=== PATIENT | male | born 1975 | race Caucasian/White ===

== ENCOUNTER 2017-04-22 08:34 | Emergency (ER) | payer OTHER ==
[~2017-04-22] VITALS: Ht 175.3 cm; Wt 65.8 kg
[~2017-04-22 08:34] MED LIST: AMOXICILLIN 50500 MG PO; IBUPROFEN 600600 M1 PO; MOBIC; NAPROSYN500 MG PO; NORCO 5-325 TA1 EACH PO; NORFLEX100 MG PO; PENICILLIN VK500 M1 PO; PERIDEX 0.12%473 M1 SSP; XANAX 0.25 MG0.25 MG PO; XANAX 0.5 MG0.5 M1 PO; XANAX 1 MG TABLE1 MG PO
[2017-04-22 09:26] LABS: URINE BILIRUBIN NEGATIVE (Negative); URINE BLOOD NEGATIVE (Negative); URINE COLOR YELLOW; URINE GLUCOSE-RANDOM* NEGATIVE (Negative); URINE KETONES NEGATIVE (Negative); URINE LEUKOCYTES-REFLEX NEGATIVE (Negative); URINE PROTEIN (DIPSTICK) NEGATIVE (Negative); URINE SPECIFIC GRAVITY <= 1.005 (1.003-1.035); URINE UROBILINOGEN 0.2 E.U./dl (0.2-1.0)
[2017-04-22 09:33] LABS: ABSOLUTE NEUTROPHILS 4.9 thou/uL (1.4-8.2); BASOPHILS 0.4 % (0.0-2.0); EOSINOPHILS 1.4 % (0.0-3.0); HEMATOCRIT 46.2 % (42.0-52.0); HEMOGLOBIN 16.2 gm/dL (14.0-18.0); LYMPHOCYTES 23.5 % (24.0-44.0); MCH 33.7 pg (26.0-34.0); MCHC 35.1 g/dL (28.0-37.0); MCV 95.9 fL (80.0-100.0); MONOCYTES 11.8 % (1.0-8.0); POLYS 62.9 % (36.0-66.0); RBC 4.82 mil/uL (4.50-6.00); RDW 13.6 % (10.5-14.5); WBC 9.4 thou/uL (4.0-11.0)
[2017-04-22 09:35] LABS: AMP/METHAMP Negative (Negative); BARBITURATES Negative (Negative); BENZODIAZEPINES Negative (Negative); COCAINE Negative (Negative); METHADONE Negative (Negative); OPIATES Negative (Negative); PCP Negative (Negative); THC Negative (Negative)
[2017-04-22 09:35] LABS: MANUAL DIFF NO
[2017-04-22 09:42] LABS: PLATELET COUNT 173 thou/uL (150-400)
[2017-04-22 09:46] LABS: CALCIUM 9.1 mg/dL (8.5-10.1); CREATININE 1.1 mg/dL (0.7-1.3); POTASSIUM 3.9 mmol/L (3.5-5.1)
[2017-04-22 09:52] LABS: ALBUMIN 3.7 g/dL (3.4-5.0); TOTAL BILIRUBIN 0.4 mg/dL (<0.1-1.0); TOTAL PROTEIN 7.7 g/dL (6.4-8.2)
[2017-04-22 10:38] VITALS: BP 119/89
[2017-04-22] MEDS ORDERED: PHENERGAN 25 MG25 M1 PO (10:38)
[2017-04-22] MEDS ORDERED: PREDNISONE 10 M10 MG PO (10:38)
[2017-04-22] MEDS ORDERED: NORFLEX100 MG PO (10:38)
== END 2017-04-22 10:49 | disposition home or self-care (01) ==
LOC: ER 08:34
PROVIDERS: Physician Assistant
DX: R11.2 Nausea with vomiting, unspecified (principal); R19.7 Diarrhea, unspecified; M54.32 Sciatica, left side; F41.9 Anxiety disorder, unspecified; F17.210 Nicotine dependence, cigarettes, uncomplicated; F10.99 Alcohol use, unspecified with unspecified alcohol-induced disorder

== ENCOUNTER 2017-07-29 15:12 | Emergency (ER) | payer OTHER ==
[~2017-07-29] VITALS: Ht 175.3 cm; Wt 68.0 kg
[~2017-07-29 15:12] MED LIST changes: +PHENERGAN 25 MG25 M1 PO; +PREDNISONE 10 M10 MG PO
[2017-07-29 15:14] VITALS: BP 112/85
[2017-07-29] MEDS ORDERED: IBUPROFEN 600600 M1 PO (15:40)
[2017-07-29] MEDS ORDERED: FLEXERIL PO (15:40)
== END 2017-07-29 16:08 | disposition home or self-care (01) ==
LOC: ER 15:12
DX: M54.5 Low back pain (principal); F10.120 Alcohol abuse with intoxication, uncomplicated; F41.9 Anxiety disorder, unspecified; F17.210 Nicotine dependence, cigarettes, uncomplicated

== ENCOUNTER 2017-08-14 15:59 | Emergency (ER) | payer OTHER ==
[~2017-08-14] VITALS: Ht 175.3 cm; Wt 65.8 kg
[~2017-08-14 15:59] MED LIST changes: +FLEXERIL PO
[2017-08-14 16:58] LABS: BASOPHILS 1.1 % (0.0-2.0); EOSINOPHILS 1.8 % (0.0-3.0); HEMOGLOBIN 16.9 gm/dL (14.0-18.0); LYMPHOCYTES 33.3 % (24.0-44.0); MCH 33.5 pg (26.0-34.0); MCHC 33.8 g/dL (28.0-37.0); PLATELET COUNT 224 thou/uL (150-400); POLYS 54.8 % (36.0-66.0); RBC 5.05 mil/uL (4.50-6.00); RDW 14.7 % (10.5-14.5); WBC 9.1 thou/uL (4.0-11.0)
[2017-08-14 16:59] LABS: URINE BILIRUBIN NEGATIVE (Negative); URINE BLOOD NEGATIVE (Negative); URINE COLOR YELLOW; URINE GLUCOSE-RANDOM* NEGATIVE (Negative); URINE KETONES NEGATIVE (Negative); URINE LEUKOCYTES-REFLEX NEGATIVE (Negative); URINE PROTEIN (DIPSTICK) NEGATIVE (Negative); URINE SPECIFIC GRAVITY <= 1.005 (1.003-1.035); URINE UROBILINOGEN 0.2 E.U./dl (0.2-1.0)
[2017-08-14 17:05] LABS: MANUAL DIFF NO
[2017-08-14 17:07] LABS: AMP/METHAMP Negative (Negative); BARBITURATES Negative (Negative); BENZODIAZEPINES Negative (Negative); COCAINE Negative (Negative); METHADONE Negative (Negative); OPIATES Negative (Negative); PCP Negative (Negative); THC Negative (Negative)
[2017-08-14 17:14] LABS: ANION GAP 14 mmol/L (7-16); BUN 11 mg/dL (7-18); CALCIUM 9.2 mg/dL (8.5-10.1); CHLORIDE 108 mmol/L (98-107); CO2 24 mmol/L (21-32); CREATININE 0.9 mg/dL (0.7-1.3); GLUCOSE 104 mg/dL (74-106); SODIUM 146 mmol/L (136-145)
[2017-08-14 17:19] LABS: ALBUMIN 3.9 g/dL (3.4-5.0); ALKALINE PHOSPHATASE 110 U/L (46-116); MAGNESIUM 2.4 mg/dL (1.8-2.4); SALICYLATE 7.6 mg/dL (2.8-20.0); SGOT 53 U/L (15-37); SGPT 44 U/L (30-65); TOTAL BILIRUBIN 0.2 mg/dL (<0.1-1.0); TOTAL PROTEIN 7.7 g/dL (6.4-8.2)
[2017-08-14 17:20] LABS: ACETAMINOPHEN < 2 ug/mL (10-30)
[2017-08-14] MEDS ORDERED: ATIVAN1 MG PO (17:35)
[2017-08-14 18:05] VITALS: BP 136/80
== END 2017-08-14 18:07 | disposition home or self-care (01) ==
LOC: ER 15:59
PROVIDERS: Emergency Medicine
DX: F10.129 Alcohol abuse with intoxication, unspecified (principal); F41.9 Anxiety disorder, unspecified; F17.210 Nicotine dependence, cigarettes, uncomplicated